=== PATIENT | male | born 1945 | race Caucasian/White ===

== ENCOUNTER 2019-11-04 11:44 | Outpatient (CLI) | payer MEDICARE, SELFPAY ==
--- NOTE | 2019-11-04 11:50 | CT_ITS ---
WS: [id number] CT ABDOMEN AND PELVIS WITH AND WITHOUT CONTRAST HISTORY: FLANK PAIN, HEMATURIA TECHNIQUE: Unenhanced 5 mm axial imaging first performed through the abdomen. Post contrast imaging t hrough the abdomen and pelvis. Oral contrast has been provided. Sagittal and coronal reformats are s ubmitted. All CT scans at [facility] use at least one of these dose optimization techniqu es: automated exposure control; mA and/or kV adjustment per patient size (includes targeted exams whe re dose is matched to clinical indication); or iterative reconstruction. CONTRAST: Visipaque 320; 95 mL IV. DLP: 3690.86 mGycm COMPARISON: None available. Lung bases are clear. Heart size is normal. Small hiatal hernia. Mild hepatomegaly with diffuse moderate hepatic steatosis. No bile duct dilatation. Gallbladder is no rmal. Spleen and pancreas are normal. Lobulated LEFT adrenal gland consistent with hyperplasia. Houns field units are low suggesting adenomatous disease. Normal RIGHT adrenal gland. Atherosclerosis aorta with no aneurysm. RIGHT kidney: 14 cm in length with no stone or obstruction. Mild perinephric stranding. There are sev eral cortical hypodensities extending exophytic from the upper and mid kidney. The largest measures 1 2 mm, image 36 of series 3 with no enhancement. No filling defect in the renal pelvis or along the co urse of the RIGHT ureter on the delayed imaging. LEFT kidney: 9.4 cm in length. No obstruction or renal calcifications. Mildly complex cyst from the u pper pole and lower pole. Largest measures 18 mm from the upper pole. Cortical thinning and volume lo ss in the mid to lower LEFT kidney is probably from a prior infarct or vascular insult. No filling de fects along the course of the LEFT ureter but it is incompletely distended with contrast. Calcified mass inseparable from the inferior lobe of the liver and the ascending colon. Benign in junior earance due to the peripheral dense calcification with no adjacent inflammation. May be from prior di verticular disease the appendix is normal. Lipoma associated with the LEFT iliopsoas muscle distally over the femoral head. Urinary bladder: Soft tissue mass which is lobulated in the posterior urinary bladder to the RIGHT of midline. Mass measures 2.4 x 3.0 x 3.4 cm. Very closely associated with the RIGHT ureteral junction. Mild enlargement of prostate gland also. L5 anterolisthesis by 11 mm due to bilateral pars defects. Severe disc space narrowing at L5-S1. CT/CT abdomen pelvis wo/w [id number] IMPRESSION: 1. Lobulated posterior RIGHT lateral bladder mass measuring 2.4 x 3.0 x 3.4 cm . Closely associated with the RIGHT UV junction but no obstruction at this time . Recommend urology consultation. Suspect transitional cell carcinoma. 2. Mild atrophy of the LEFT kidney, greatest involving the mid to lower kidney with cortical thinning. 3. Bilateral complex renal cysts. 4. No solid renal mass. 5. Mild hyperplasia versus adenoma LEFT adrenal gland. 6. Hepatic steatosis. 7. Mild diverticulosis.
[2019-11-04] MEDS: iohexol 300 mg/mL 50 mL Btl PO (13:34)
[2019-11-04] MEDS: iodixanol 320 mg/mL 100mL Btl IV (13:35)
== END 2019-11-04 11:45 | disposition home or self-care (01) ==
LOC: RADWPI 11:53
PROVIDERS: PCP Family Medicine; Visit Provider Family Medicine
DX: R31.9 Hematuria, unspecified (principal); N26.1 Atrophy of kidney (terminal); N28.1 Cyst of kidney, acquired; K76.0 Fatty (change of) liver, not elsewhere classified; K57.90 Diverticulosis of intestine, part unspecified, without perforation or abscess without bleeding
CPT/HCPCS: 74178; Q9967

== ENCOUNTER → 2019-11-22 10:37 | Outpatient (BNVA) | payer MEDICARE, SELFPAY | PROVIDERS: PCP Family Medicine; Visit Provider Urology | DX: C67.4 Malignant neoplasm of posterior wall of bladder (principal); R31.0 Gross hematuria; R33.8 Other retention of urine | CPT/HCPCS: 81001 ==

== ENCOUNTER 2019-11-25 16:17 | Observation (INO) | payer MEDICARE, SELFPAY ==
[2019-11-22 17:19] VITALS: BMI 32.9
[2019-11-25] VITALS (12 sets, daily range): BP systolic 121–176; BP diastolic 74–96; PULSE 68–101; RESP 12–28; TEMP 36.4–36.8; O2SAT 94–98
--- NOTE | 2019-11-25 13:46 | XRR_ITS ---
PROCEDURE INFORMATION: Exam: XR Chest, 2 Views Exam date and time: 11/25/2019 2:23 PM Age: 74 years old Clinical indication: Pre-operative exam; Cardiovascular screening and respiratory screening exam; Additional info: Recently diagnosed bladder cancer, history of tobacco use, pre op TECHNIQUE: Imaging protocol: XR of the chest Views: Frontal and lateral upright views. COMPARISON: No relevant prior studies available. FINDINGS: Lungs: The lungs are clear bilaterally. The pulmonary vasculature is normal. Pleural space: No pleural effusion. No pneumothorax. Heart/Mediastinum: The heart is normal in size and contour. Vasculature: Moderate aortic arch atherosclerotic calcification without ectasia. Mild tortuosity of the upper descending thoracic aorta. Bones/joints: No acute chest wall abnormality identified. XR/XR chest 2V* [id number] IMPRESSION: No acute cardiopulmonary abnormality identified.
--- NOTE | 2019-11-25 14:05 | ANES.PREANE2 ---
Pre-Anesthetic Assessment Pre-Anesthetic Assessment: Height/Weight: Height 1.83 m Weight 110.223 kg Temp Pulse Resp BP Pulse Ox 97.5 F L 88 18 129/80 98 11/25/19 13:40 11/25/19 13:40 11/25/19 13:40 11/25/19 13:40 11/25/19 13:40 Preop Diagnosis: Newly diagnosed bladder cancer Proposed Procedure: Operation Date: 11/25/19 14:50 Proposed Procedures p Cystoscopy 36454 C67.4(Not Applicable) - Kodak Romero MD s Transurethral Resection Bladder Tumor(Not Applicable) - Kodak Romero MD Last intake: Intake Last Liquid Date 11/25/19 Last Liquid Time 09:20 Last Solid Date 11/24/19 Last Solid Time 23:30 Social: Social History: Tobacco Packs per day: 1 Pack years: 60 Airway: Submandibular: WNL Cervical ROM: WNL MP: 1 Dentition: False CV/HEM: CV/HEM: HTN Comments: stress test '95 negative 2 Blocks/2FOS without angina/ROSARIO : Comments: bladder tumor GI: GI: GERD Comments: omeprazole controlled Metabolic: Metabolic: DM (rx'd x 12y, normally 300-380) Anesthetic Plan: ASA status: 3 Anesthesia: General PFSH Anesthesia PFSH: Medical History (Updated 11/22/19 @ 16:24 by Nadiya Christensen RN) 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
[2019-11-25] MEDS: insulin regular-human 100 units/1 mL 10 UNIT IVP (14:14)
[2019-11-25 14:47] LABS: Basophils # 0.1 10^3/uL (0.0-0.1); Basophils % 0.8 %; Eosinophils # 0.2 10^3/uL (0.0-0.8); Eosinophils % 2.7 %; Hemoglobin 14.6 g/dL (11.7-16.6); Lymphocytes # 2.4 10^3/uL (0.8-4.8); Mean Corpuscular HGB Conc 32.4 g/dL (30.0-36.0); Mean Corpuscular Hemoglobin 28.9 pg (28.0-34.0); Mean Corpuscular Volume 88.9 fL (80-94); Mean Platelet Volume 10.4 fL (7.4-10.4); Monocytes # 0.6 10^3/uL (0.2-0.9); Monocytes % 8.4 %; Neutrophils # 3.9 10^3/uL (1.8-7.7); Neutrophils % 54.5 %; Nucleated Red Blood Cells % 0 %; Platelet Count 274 10^3/cmm (130-400); Red Blood Count 5.06 10^6/uL (4.1-5.3); Red Cell Distribution Width 12.8 % (12.1-15.1); White Blood Count 7.1 10^3/uL (4.0-10.0)
[2019-11-25 15:06] LABS: Alanine Aminotransferase 52 U/L (0-41); Albumin Level 4.3 g/dL (3.5-5.2); Alkaline Phosphatase 73 IU/L (40-130); Anion Gap 19.7 (5-19); Aspartate Amino Transferase 37 U/L (0-40); Blood Urea Nitrogen 15 mg/dL (8-23); Calcium 10.7 mg/dL (8.5-10.5); Carbon Dioxide 23 mmol/L (22-29); Chloride 94 mmol/L (98-107); Globulin 3.6 g/dL (1.3-4.6); Glucose 341 mg/dL (65-115); Potassium 4.7 mmol/L (3.5-5.1); Sodium 132 mmol/L (136-145); Total Bilirubin 0.4 mg/dL (0.15-1.2); Total Protein 7.9 g/dL (6.6-8.7)
--- NOTE | 2019-11-25 15:08 | P.OP_ITS ---
Operative Report Date of procedure: November 25, 2019 Pre-op Diagnosis: Newly diagnosed bladder cancer Post-op diagnosis: same Procedure Done: Cystoscopy, transurethral resection of bladder tumor large Specimens removed/disposition: Bladder tumor fragments Pathology: Right posterior floor bladder tumor Surgeon: Nick Anesthesia: General Estimated blood loss: Less than 100 cc Urine output: Not measured Complications: None Findings: Large papillary tumor extending from the right posterior floor cephalad to the right ureteral orifice with surrounding neoplastic changes at the base no clear evidence of muscle invasion. Condition: stable Disposition: PACU Brief History: Mr. Cornejo is a very pleasant 74-year-old white male who I evaluated for the first time last week for 6 weeks of intermittent gross hematuria and a CT scan that demonstrated what a bladder mass confirmed on cystoscopy to be consistent with TCCA cephalad and lateral to the right ureteral orifice. At the base of the tumor there was additional abnormality identified as flat and papillary changes. Admitted now for TURBT. Procedure: After routine preoperative evaluation examination and obtaining of informed consent he was taken to the operating suite on 11/25/2019 where general anesthesia was administered without difficulty after appropriate timeout was p erformed, SCDs confirmed to be functioning, preoperative antibiotics administered, beta-carlos protocol confirmed. Prepped and draped in the usual sterile fashion in dorsolithotomy position pain careful attention to avoiding pressure points. 21 [place] cystoscope with 30 degree lens was introduced to the urethral meatus and advanced into the bladder under videoscopy. Bladder was systematically e xamined with both 30 and 70 degree lens. Other than the lesion described above there were no additional tumors found. The urethra was then calibrated with [place] sounds and easily accommodated 28 [place]. 2% lidocaine jelly was instilled into the urethra. The 25 [place] continuous flow resectoscope sheath was advanced into well-lubricated urethra with the visual obturator. The gyrus bipolar system was utilized with the super loop for resection and the button probe for obtaining hemostasis after the tumor was completely resected. The tumor was very vascular but bleeding was controlled relatively easily. Landmarks were again ascertained with the orifice identified away from the tumor. The tumor was resected from the edge farthest from the bladder wall down to the base. All abnormal tissue was resected. Deep sampling was performed into the muscle. It appears that the tumor is probably invasive at least into the lamina propria and possibly into the muscle. The button probe was utilized for obtaining meticulous hemostasis. Chips were all evacuated from the bladder with an BasharJobs evacuator. On final inspection there was no active bleeding, no remaining chips, and the bladder was drained with a 20 [place] three-way Hood catheter with light CBI running with normal saline. Tolerated the procedure well without complications and was awakened in the operating room and returned to the recovery room in stable condition PLANS: 1. Mitomycin instillation in the morning 2. Voiding trial after mitomycin
--- NOTE | 2019-11-25 15:12 | W.PM.OPSUD ---
Surgery/Procedure H&P Update DATE OF PROCEDURE: November 25, 2019 DATE H&P PERFORMED: 11/22/19 H&P UPDATE INFORMATION: I have reviewed H&P completed within last 30 days, I have examined patient prior to procedure, No changes to prior documentation and H&P is in [facility] [place] on date indicated PREOP DIAGNOSIS: Newly diagnosed bladder cancer PLANNED PROCEDURE: Operation Date: 11/25/19 14:50 Proposed Procedures p Cystoscopy 22533 C67.4(Not Applicable) - Kodak Romero MD s Transurethral Resection Bladder Tumor(Not Applicable) - Kodak Romero MD
[2019-11-25 15:13] LABS: Glucose Point of Care 312 mg/dL (70-110)
[2019-11-25] MEDS: levofloxacin-dextrose 5 % 500 MG/100 ML PREMIX 100 MG IV (15:15)
[2019-11-25] MEDS: sodium chloride 0.9% 1,000 ML 30 ML IV (15:17)
[2019-11-25] MEDS: lidocaine 2% Urojet 20 mL TOPICAL (15:49)
[2019-11-25 17:24] LABS: Glucose Point of Care 235 mg/dL (70-110)
[2019-11-25] MEDS: glimepiride 2 mg Tablet 4 MG PO (18:27)
[2019-11-25] MEDS: sodium chloride 0.9% 1,000 ML 50 ML IV (18:27)
[2019-11-25] MEDS: metformin 500 mg Tablet 1000 MG PO (18:27)
--- NOTE | 2019-11-25 18:51 | PC.NURSE ---
Received Patient from surgery with CBI going and had in 400. Patient received 2800mL and out 1700 which put his output at 300mL. Family is at bedside. Urine is clear and patient is tolerating well.
[2019-11-25 21:09] LABS: Glucose Point of Care 263 mg/dL (70-110)
--- NOTE | 2019-11-26 05:03 | PC.NURSE ---
Pt tolerated CBI well - currently at a fast paced drip to maintain light pink tinged output, when slowed down too much output does become wei red. No visible clots. Draining well - No complaints of pain/discomfort/pressure to suprapubic area and no need at this time to manually irrigate. Approx 900ml urine output at this time. Further intake/output totals to follow at end of shift.
--- NOTE | 2019-11-26 07:20 | PM.MISC ---
Miscellaneous Note Note: Mitomycin instilled into the bladder. Try to hold for 1 hour or less. Based on the depth of resection I will plan on leaving the catheter in after mitomycin has been instilled and discharged with Hood in place until voiding trial in my office.
--- NOTE | 2019-11-26 07:24 | PC.NURSE ---
total approx CBI instillation to total [id number] with approx 1300ml urine output.
[2019-11-26 08:00] VITALS: BP 130/82; PULSE 72; RESP 16; TEMP 36.8; O2SAT 94
[2019-11-26] MEDS: glimepiride 2 mg Tablet 4 MG PO (09:15)
[2019-11-26] MEDS: metformin 500 mg Tablet 1000 MG PO (09:15)
[2019-11-26] MEDS: pantoprazole DR 40 mg Tablet PO (09:15)
[2019-11-26] MEDS: tamsulosin 0.4 mg Capsule PO (09:16)
[2019-11-26] MEDS: atorvastatin 40 mg Tablet 20 MG PO (09:16)
[2019-11-26] MEDS: lisinopril 5 mg Tablet PO (09:16)
--- NOTE | 2019-11-26 09:37 | PC.CHAP ---
Pastoral Care Encounter/Spiritual Assessment Type of Contact [] Declined port drier visit [] Patient/Family/Request visit [] Outpatient visit [] Follow-up visit [] Physician referral [] Code/Alert [x] Routine visit [] Staff referral [] Actively dying [] Patient sleeping [] Family support [] [] Out of room [] Palliative care [] [] Receiving care in room [] Pre-surgical visit [] Trauma [] Long length of stay [] ICU visit [] Other: Relational/Emotional Strength [x] Patient feels connected with others/family/visitors/staff [] Distress [] Loneliness/isolation [] Abandonment Spirituality of Patient [x] Person of Cierra [] Attends Quaker of their Cierra [] Believes in Prayer [] Reads Bible or Oriental Orthodox materials [] There are Spiritual issues to be addressed Indian Trader Interventions [x] Prayer [x] Active listening []x Non-anxious presence [] Spiritual/emotional support [] Crisis/trauma care [] Spiritual counseling [] Bereavement support [] Provided bereavement packet [] Provided Bible/devotional materials [] Provided toy/stuffed animal, coloring book to patient or family member [] Provided Communion [] Anointing/[place] [] Salvation [] Completed spiritual assessment [] Other: Impact on Illness or Injury [] Angry [] Fearful [] Anxious [] Often cries [] Exhaustion [] Unable to work [] Unable to attend christianity [] Unable to walk/stand [] Unable to read [] Unable to drive [] Unable to eat/drink [] Unable to sleep [] Unable to be with family [] Patient intubated [] Other: Summary patient ready ro go home 15 min Time spent with patient
[2019-11-26 09:49] VITALS: PULSE 75; O2SAT 93
[2019-11-26 10:00] VITALS: BMI 32.9
[2019-11-26 11:11] LABS: Glucose Point of Care 363 mg/dL (70-110)
[2019-11-26] MEDS: acetaminophen 325 mg Tablet 650 MG PO (11:32)
--- NOTE | 2019-11-26 11:49 | ANE.PACU2 ---
 Inpatient post-anesthesia follow up: Airway intact: Yes Vital signs: Temperature 98.3 F Pulse Rate 75 Respiratory Rate 16 Blood Pressure 130/82 Pulse Oximetry 93 Oxygen Delivery Me thod [ Room Air Current Rate & Del sally] Oxygen Delivery Me thod Room Air Oxygen Flow Rate 8 Fraction of Inspir ed Oxygen Hydration adequate: Yes Nausea and vomiting: No Mental status: Baseline
--- NOTE | 2019-11-26 12:22 | PM.DCS ---
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 Reason for Visit Reason for Visit: Reason For Visit: Cystoscopy Transurethral recsection of bladder [place] Hospital Course Hospital Course: Admitted through outpatient surgery for the above procedure which went well. Postoperatively he was maintained on light CBI on the night of his surgery. On postoperative day #1 he underwent mitomycin instillation intravesically and held for an hour before drainage. No untoward events. Catheter was maintained at time of discharge due to the depth of resection. On the afternoon of postoperative day #1 he was deemed a good candidate for further convalescence at home. Physical Exam Const: COMMON NORMALS: no apparent distress, alert and well nourished GENERAL APPEARANCE: well kempt and well developed ORIENTATION/CONSCIOUSNESS: not confused Neck/C-Spine: GENERAL: Yes normal visual inspection Resp: COMMON NORMALS: normal respiratory effort EFFORT & INSPECTION: No labored and No actively coughing Extremity: COMMON NORMALS: no clubbing, cyanosis or edema Neuro: SENSORIUM/ORIENTATION: Yes alert Psych: COMMON NORMALS: mental status grossly normal APPEARANCE: Yes grossly normal and Yes well kempt ATTITUDE: Yes calm and Yes engaged Urinary Catheter Management^: 3-way Urethral CBI: Cath Placed During This Visit: yes Urethral Indwelling: Yes Reason for Continuing Indwelling Catheter: Perioperative Use in Selected Surgeries Urinary Catheter Date of Insertion: 11/25/19 Urinary Catheter Time of Insertion: 16:08 Discharge Data Data Completed and Pending: Completed Studies During Hospitalization Category Date Time Status XR chest 2V* 7104 6 Routine Exams 11/25/19 13:46 Completed Pending at discharge Category Date Time Status Pathology: Surgic al [PTH] Routine Pth 11/25/19 16:14 Received Labs from last 24 hours 11/26/19 11/25/19 11/25/19 10:51 21:06 17:21 WBC RBC Hgb Hct MCV MCH MCHC RDW Plt Count MPV Neut % (Auto) Lymph % (Auto) [place] % (Auto) Eos % (Auto) Baso % (Auto) Neut # (Auto) Lymph # (Auto) [place] # (Auto) Eos # (Auto) Baso # (Auto) Nucleated RBC % (a uto) Nucleated RBCs # Sodium Potassium Chloride Carbon Dioxide Anion Gap BUN Creatinine Glucose POC Glucose 363 263 235 Calcium Total Bilirubin AST ALT Alkaline Phosphata se Total Protein Albumin Globulin 11/25/19 11/25/19 11/25/19 13:52 13:49 13:49 WBC 7.1 RBC 5.06 Hgb 14.6 Hct 45.0 MCV 88.9 MCH 28.9 MCHC 32.4 RDW 12.8 Plt Count 274 MPV 10.4 Neut % (Auto) 54.5 Lymph % (Auto) 33.0 [place] % (Auto) 8.4 Eos % (Auto) 2.7 Baso % (Auto) 0.8 Neut # (Auto) 3.9 Lymph # (Auto) 2.4 [place] # (Auto) 0.6 Eos # (Auto) 0.2 Baso # (Auto) 0.1 Nucleated RBC % (a uto) 0 Nucleated RBCs # 0.0 Sodium 132 L Potassium 4.7 Chloride 94 L Carbon Dioxide 23 Anion Gap 19.7 H BUN 15 Creatinine 0.9 Glucose 341 H POC Glucose 312 Calcium 10.7 H Total Bilirubin 0.4 AST 37 ALT 52 H Alkaline Phosphata se 73 Total Protein 7.9 Albumin 4.3 Globulin 3.6 Vitals: Last Vital Signs Temp 98.3 F 11/26/19 08:00 Pulse 75 11/26/19 09:49 Resp 16 11/26/19 08:00 BP 130/82 11/26/19 08:00 Pulse Ox 93 11/26/19 09:49 Discharge Plan Discharge Patient Disposition: Home, Self-Care Condition: Stable Prescriptions: Continued Complete Multivitamin Tablet 1 tab PO DAILY RF: 0 Tradjenta 5 mg tablet 5 mg PO DAILY RF: 0 tadalafil 20 mg tablet 20 mg PO DAILY PRN (Reason: Erectile Dysfunction) RF: 0 tamsulosin 0.4 mg capsule 0.4 mg PO DAILY RF: 0 simvastatin 10 mg tablet 10 mg PO DAILY RF: 0 lisinopril 5 mg tablet 5 mg PO DAILY RF: 0 omeprazole 20 mg capsule,delayed release(DR/EC) 20 mg PO DAILY RF: 0 glimepiride 4 mg tablet 4 mg PO BID RF: 0 metformin 1,000 mg tablet 1,000 mg PO BID RF: 0 Discontinued lidocaine HCl 2 % jelly 1 applic INTRA-URET ONCE Qty: 15 RF: 0 Discharge Orders: Discharge Order (Routine); Ordered 11/26/19 Ordered By: Kodak Romero Referrals: Kodak Romero MD [Physician] - 1-3 days (Later this week for voiding trial and hopefully pathology report review) Discharge Diet: Usual diet Discharge Activity: Limit activity as instructed Discharge Attestations Time Spent in Discharge Care*: less than 30 min Quality Metrics Clinical Quality Measures During this hospital stay, did patient experience: None Coding Level of Care Code Acute Global Climate Change Researcher for g Fwd Diagnoses 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
[2019-11-26 12:38] VITALS: PULSE 75; O2SAT 93
--- NOTE | 2019-11-26 13:18 | PC.NURSE ---
DISCHARGE SUMMARY Patient was given discharge instructions. family was a t bedside and received education on Hood catheter care. nigh and leg Hood bags were sent home with patient. IV discontinued and vital signs stable. patient was alert and orient. follow up appointments made and patient was taken downstairs by volunteer via wheelchair.
== END 2019-11-26 13:20 | disposition home or self-care (01) ==
LOC: MEDSURG 16:17
PROVIDERS: Admitting Provider Urology; PCP Family Medicine; Visit Provider Urology
PROC: 0TJB8ZZ Inspection of Bladder, Via Natural or Artificial Opening Endoscopic (ICD-10-PCS; CPT 52000; principal; 2019-11-25 14:20)
PROC: 0TBB8ZZ Excision of Bladder, Via Natural or Artificial Opening Endoscopic (ICD-10-PCS; CPT 52240; 2019-11-25 14:20)
DX: C67.4 Malignant neoplasm of posterior wall of bladder (principal); F17.210 Nicotine dependence, cigarettes, uncomplicated; I10 Essential (primary) hypertension; K21.9 Gastro-esophageal reflux disease without esophagitis; E11.9 Type 2 diabetes mellitus without complications; Z79.84 Long term (current) use of oral hypoglycemic drugs
CPT/HCPCS: 52240; 12345; 36416; 71046; 80053; 82962; 85025; 88305; 96365; 96374; G0378; J1815; J1956; J2001; J2370; J2405; J2704; J2710; J3010; J3490; J7030; J9280

== ENCOUNTER → 2019-12-16 11:58 | Outpatient (BNVA) | payer MEDICARE, SELFPAY | PROVIDERS: PCP Family Medicine; Visit Provider Urology | DX: C67.4 Malignant neoplasm of posterior wall of bladder (principal); R31.0 Gross hematuria; N30.80 Other cystitis without hematuria | CPT/HCPCS: 80053; 81001; 87077; 87086; 87186 ==

== ENCOUNTER 2019-12-19 15:43 | Observation (INO) | payer MEDICARE, SELFPAY ==
[2019-12-18 13:10] VITALS: BMI 32.9
[2019-12-19] VITALS (17 sets, daily range): BP systolic 118–180; BP diastolic 74–97; PULSE 77–98; RESP 13–20; TEMP 36.1–37.1; O2SAT 90–97
[2019-12-19] MEDS: sodium chloride 0.9% 1,000 ML 30 ML IV ×2 (12:47→16:17)
[2019-12-19 12:57] LABS: Glucose Point of Care 306 mg/dL (70-110)
--- NOTE | 2019-12-19 13:02 | ANES.PREANE2 ---
Pre-Anesthetic Assessment Pre-Anesthetic Assessment: Height/Weight: Height 1.83 m Weight 110.223 kg Temp Pulse Resp BP Pulse Ox 97.2 F L 97 18 118/87 94 12/19/19 12:35 12/19/19 12:35 12/19/19 12:35 12/19/19 12:35 12/19/19 12:35 Preop Diagnosis: High-grade bladder cancer needs restaging Proposed Procedure: Operation Date: 12/19/19 14:00 Proposed Procedures s Transurethral Resection Bladder Tumor 73365 C67.9(Not Applicable) - Kodak Romero MD p Cystoscopy 01222 C67.9(Not Applicable) - Kodak Romero MD Last intake: Intake Last Liquid Date 12/19/19 Last Liquid Time 08:40 Last Solid Date 12/18/19 Last Solid Time 20:00 Social: Social History: Alcohol and Tobacco Exam: Pre-Anes Outpt Exam: alert, oriented x 3, clear to auscultation bilaterally and regular rate & rhythm Airway: Submandibular: WNL Cervical ROM: WNL MP: 1 Dentition: Full History/ROS: No significant history except as noted Pulmonary: Pulmonary: None reported CV/HEM: CV/HEM: HTN : Comments: bladder ca Hepatic: Hepatic: None reported GI: GI: None reported Metabolic: Metabolic: DM Musc/skel: Musc/skel: None reported Neuropsych: Neuropsych: None reported Anesthetic Plan: ASA status: 3 Anesthesia: Anesthesia Evaluation and General Risk of > 500 ml blood loss (7ml/kg in children): No Meds/Allergies Current Medications: Current Medications Generic Name Dose Route Start Last Admin Trade Name Freq PRN Reason Stop Dose Admin Sodium Chloride 1,000 mls @ 30 ml s/hr 12/19/19 08:00 12/19/19 12:47 Sodium Chloride 0.9% IV 12/20/19 07:59 30 mls/hr .Q24H JAI Administration PFSH Anesthesia PFSH: Medical History 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 Diabetes mellitus Family History Father , at age 54 Cancer Mother , at age 92 No problems noted. Social History Smoking and tobacco status: current every day smoker Alcohol intake: current Adopted: No Caregiver/support person: No Current occupational status: retired History of recent travel: No Current gender identity: Male Data Anesthesia Other Labs: Laboratory Results - last 48 hr 12/19/19 12:53 POC Glucose 306 Cardiac Studies: No Data to Display
[2019-12-19] MEDS: insulin regular-human 100 units/1 mL 10 UNIT IVP (13:10)
--- NOTE | 2019-12-19 13:34 | W.PM.OPSUD ---
Surgery/Procedure H&P Update DATE OF PROCEDURE: December 19, 2019 DATE H&P PERFORMED: 11/22/19 H&P UPDATE INFORMATION: I have reviewed H&P completed within last 30 days, I have examined patient prior to procedure and No changes to prior documentation PREOP DIAGNOSIS: High-grade bladder cancer needs restaging PLANNED PROCEDURE: Operation Date: 12/19/19 14:00 Proposed Procedures s Transurethral Resection Bladder Tumor 68455 C67.9(Not Applicable) - Kodak Romero MD p Cystoscopy 68426 C67.9(Not Applicable) - Kodak Romero MD
[2019-12-19 13:55] LABS: Glucose Point of Care 278 mg/dL (70-110)
--- NOTE | 2019-12-19 14:17 | P.OP_ITS ---
Operative Report Date of procedure: December 19, 2019 Pre-op Diagnosis: High-grade bladder cancer needs restaging Post-op diagnosis: same Procedure Done: Cystoscopy transurethral resection of bladder tumor base with deep sampling. Pathology: Deep bladder wall sampling at base of previous resection Surgeon: Nick Anesthesia: General Estimated blood loss: Minimal Urine output: Not measured Complications: None Findings: No visible tumor identified. Deep resection of the base of the previously resected bladder tumor cephalad and lateral to the right ureteral orifice. Resection demonstrated muscle fibers visualized in the resected area Condition: stable Brief History: Mr. Cornejo is a very pleasant 74-year-old white male recently diagnosed with a large bladder tumor on the right posterior lateral bladder wall cephalad to the right ureteral orifice. On 11/25/2019 he underwent a cystoscopy and transurethral resection of this tumor. All visible tumor was resected. It was felt that the time that there was a deep adequate sampling but the final pathology report failed to show obvious muscle. Pathology did reveal high-grade lamina propria TCCA and for that reason he is being admitted now for restaging deeper biopsies to confirm presence or absence of muscle involvement. Procedure: After routine preoperative evaluation examination and obtaining of informed consent he was taken to the operating suite on 12/19/2019 where general anesthesia was administered without difficulty after appropriate timeout was performed, SCDs confirmed to be functioning, preoperative antibiotics administered, beta-carlos protocol confirmed. Prepped and draped in usual sterile fashion in dorsolithotomy position pain careful attention to avoiding pressure points. 21 [place] cystoscope with 30 degree lens was introduced to the urethral meatus and advanced into the bladder under videoscopy. Bladder was systematically examined with both 30 and 70 degree lenses. The site of the previous section was easily identified. It had a lot of whitish fluffy eschar. There was no obvious residual tumor identified. The urethra was then calibrated with [place] sounds and easily accommodated 30 [place]. 2% lidocaine jelly was instilled into the urethra and a 25 [place] continuous flow resectoscope with visual obturator in place was advanced into the bladder without difficulty. The gyrus bipolar system was utilized for the deep resection. The super loop was utilized first to resect the base of the previously identified tumor. Muscle fibers were identified in the base of the wound. No clear evidence of residual tumor was identified. The entire base of the previous resection was resected further. The button probe was then utilized to obtain meticulous hemostasis. All the work was done well away from the right ureteral orifice. At the completion of the procedure the samples were sent for pathologic evaluation, all chips were confirmed to have been removed with an Ellik evacuator and hemostasis was meticulous. The bladder was drained with a 20 [place] two-way Hood catheter. He tolerated the procedure well without complications and was awakened in the operating room and returned to recovery in stable condition. PLANS: 1. He will be observed overnight with anticipated discharge in the morning.
[2019-12-19] MEDS: levofloxacin-dextrose 5 % 500 MG/100 ML PREMIX 100 MG IV (14:40)
[2019-12-19] MEDS: HYDROcodone-acetaminophen 5-325 mg Tablet 1 TAB PO ×2 (16:17→22:52)
[2019-12-19 17:09] LABS: Glucose Point of Care 289 mg/dL (70-110)
[2019-12-19] MEDS: metformin 500 mg Tablet 1000 MG PO (17:55)
[2019-12-19] MEDS: ciprofloxacin 500 mg Tablet PO (17:55)
[2019-12-19] MEDS: glimepiride 2 mg Tablet 4 MG PO (17:56)
[2019-12-19] MEDS: docusate sodium 100 mg Capsule PO (17:56)
[2019-12-19 21:59] LABS: Glucose Point of Care 364 mg/dL (70-110)
[2019-12-20] VITALS: BP 125/78; PULSE 84; RESP 18; TEMP 37.3; O2SAT 91
[2019-12-20 04:34] VITALS: BP 143/83; PULSE 100; RESP 14; TEMP 36.6; O2SAT 91
--- NOTE | 2019-12-20 05:48 | PM.DCS ---
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 (2) Diabetes mellitus: Status: Acute (3) Hx of primary hypertension: Status: Acute Reason for Visit Reason for Visit: Reason For Visit: Cystoscopy Transurethral resection of bladder tumo Hospital Course Hospital Course: Admitted through OPS for TURBT of base of previous resection site to restage. Surgery went well. Post op urine remained clear. Voiding trial early on POD #1. Urine remained clear and he emptied well and bladder scan post void residual Discharged on POD #1 with f/u scheduled for 2 month cysto if no muscle involvement on final path. Plan for BCG initiation at that time if well healed. Physical Exam Const: COMMON NORMALS: no apparent distress, alert and well nourished GENERAL APPEARANCE: well kempt and well developed ORIENTATION/CONSCIOUSNESS: not confused Neck/C-Spine: COMMON NORMALS: full ROM Resp: COMMON NORMALS: normal respiratory effort EFFORT & INSPECTION: No labored and No actively coughing Extremity: COMMON NORMALS: no clubbing, cyanosis or edema Neuro: COMMON NORMALS: no focal motor deficits SENSORIUM/ORIENTATION: Yes alert Psych: COMMON NORMALS: mental status grossly normal APPEARANCE: Yes grossly normal and Yes well kempt ATTITUDE: Yes calm and Yes engaged Urinary Catheter Management^: Hood: Cath Placed During This Visit: yes Urinary Catheter Date of Insertion: 12/19/19 Urinary Catheter Time of Insertion: 15:15 Discharge Data Data Completed and Pending: Pending at discharge Category Date Time Status Pathology: Surgic al [PTH] Routine Pth 12/19/19 15:09 Ordered Labs from last 24 hours 12/19/19 12/19/19 12/19/19 21:53 17:03 13:43 POC Glucose 364 289 278 12/19/19 12:53 POC Glucose 306 Vitals: Last Vital Signs Temp 98 F 12/20/19 04:34 Pulse 100 12/20/19 04:34 Resp 14 12/20/19 04:34 BP 143/83 12/20/19 04:34 Pulse Ox 91 12/20/19 04:34 Discharge Plan Discharge Patient Disposition: Home, Self-Care Condition: Stable Prescriptions: Continued Complete Multivitamin Tablet 1 tab PO DAILY RF: 0 Tradjenta 5 mg tablet 5 mg PO DAILY RF: 0 tadalafil 20 mg tablet 20 mg PO DAILY PRN (Reason: Erectile Dysfunction) RF: 0 tamsulosin 0.4 mg capsule 0.4 mg PO DAILY RF: 0 simvastatin 10 mg tablet 10 mg PO DAILY RF: 0 lisinopril 5 mg tablet 5 mg PO DAILY RF: 0 omeprazole 20 mg capsule,delayed release(DR/EC) 20 mg PO DAILY RF: 0 glimepiride 4 mg tablet 4 mg PO BID RF: 0 metformin 1,000 mg tablet 1,000 mg PO BID RF: 0 ciprofloxacin HCl 500 mg tablet 500 mg PO BID Qty: 14 RF: 1 Discharge Orders: Discharge Order (Routine); Ordered 12/20/19 Ordered By: Kodak Romero Referrals: Kodak Romero MD [Physician] - 02/28/20 9:00 am (Cystoscopy and BCG initiation) Discharge Diet: Usual diet Discharge Activity: Limit activity as instructed Patient Instructions: Cystoscopy (DC) Activity Restrictions/Additional Instructions: 1. No lifting greater than 10 lbs x 2 weeks 2. Call my office if you've not heard from us by Monday the . 3. Please call if you have any concerns or questions. 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
[2019-12-20] MEDS: HYDROcodone-acetaminophen 5-325 mg Tablet 1 TAB PO (06:10)
[2019-12-20 06:42] LABS: Glucose Point of Care 231 mg/dL (70-110)
[2019-12-20 07:45] VITALS: BP 130/62; PULSE 84; RESP 18; TEMP 36.9; O2SAT 93
--- NOTE | 2019-12-20 08:33 | PC.NURSE ---
1st void pt voided 175ml clear yellow urine. bladder scanned and showed 0ml.
[2019-12-20] MEDS: metformin 500 mg Tablet 1000 MG PO (08:53)
[2019-12-20] MEDS: glimepiride 2 mg Tablet 4 MG PO (08:54)
[2019-12-20] MEDS: tamsulosin 0.4 mg Capsule PO (08:57)
[2019-12-20] MEDS: lisinopril 5 mg Tablet PO (08:57)
[2019-12-20] MEDS: pantoprazole DR 40 mg Tablet PO (08:57)
[2019-12-20] MEDS: docusate sodium 100 mg Capsule PO (08:58)
[2019-12-20] MEDS: ciprofloxacin 500 mg Tablet PO (08:58)
--- NOTE | 2019-12-20 10:39 | P.DS_ITS ---
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 (2) Diabetes mellitus: Status: Acute (3) Hx of primary hypertension: Status: Acute Reason for Visit Reason for Visit: Reason For Visit: Cystoscopy Transurethral resection of bladder tumo Hospital Course Hospital Course: Admitted through OPS for TURBT of base of previous resection site to restage. Surgery went well. Post op urine remained clear. Voiding trial early on POD #1. Urine remained clear and he emptied well and bladder scan post void residual Discharged on POD #1 with f/u scheduled for 2 month cysto if no muscle involvement on final path. Plan for BCG initiation at that time if well healed. Physical Exam Const: COMMON NORMALS: no apparent distress and alert Resp: COMMON NORMALS: normal respiratory effort EFFORT & INSPECTION: No tachypneic and No respiratory distress Neuro: SENSORIUM/ORIENTATION: Yes alert Psych: COMMON NORMALS: mental status grossly normal, thought process normal and cooperative ATTITUDE: Yes calm and Yes engaged THOUGHT PROCESS: normal thought process Urinary Catheter Management^: Hood: Cath Placed During This Visit: yes Urinary Catheter Date of Insertion: 12/19/19 Urinary Catheter Time of Insertion: 15:15 Discharge Data Data Completed and Pending: Pending at discharge Category Date Time Status Pathology: Surgic al [PTH] Routine Pth 12/19/19 15:09 Ordered Labs from last 24 hours 12/20/19 12/19/19 12/19/19 06:37 21:53 17:03 POC Glucose 231 364 289 12/19/19 12/19/19 13:43 12:53 POC Glucose 278 306 Vitals: Last Vital Signs Temp 98.5 F 12/20/19 07:45 Pulse 84 12/20/19 07:45 Resp 18 12/20/19 07:45 BP 130/62 12/20/19 07:45 Pulse Ox 93 12/20/19 07:45 Discharge Plan Discharge Patient Disposition: Home, Self-Care Condition: Stable Prescriptions: Continued Complete Multivitamin Tablet 1 tab PO DAILY RF: 0 Tradjenta 5 mg tablet 5 mg PO DAILY RF: 0 tadalafil 20 mg tablet 20 mg PO DAILY PRN (Reason: Erectile Dysfunction) RF: 0 tamsulosin 0.4 mg capsule 0.4 mg PO DAILY RF: 0 simvastatin 10 mg tablet 10 mg PO DAILY RF: 0 lisinopril 5 mg tablet 5 mg PO DAILY RF: 0 omeprazole 20 mg capsule,delayed release(DR/EC) 20 mg PO DAILY RF: 0 glimepiride 4 mg tablet 4 mg PO BID RF: 0 metformin 1,000 mg tablet 1,000 mg PO BID RF: 0 ciprofloxacin HCl 500 mg tablet 500 mg PO BID Qty: 14 RF: 1 Discharge Orders: Discharge Order (Routine); Ordered 12/20/19 Ordered By: Kodak Romero Referrals: Kodak Romero MD [Physician] - 2 months (Cystoscopy and BCG initiation) Discharge Diet: Usual diet Discharge Activity: Limit activity as instructed Activity Restrictions/Additional Instructions: 1. No lifting greater than 10 lbs x 2 weeks 2. Call my office if you've not heard from us by Monday the . 3. Please call if you have any concerns or questions. 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
--- NOTE | 2019-12-20 11:06 | PC.NURSE ---
IV REMOVED FROM LEFT WRIST. Catheter intact. 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
--- NOTE | 2019-12-20 11:07 | PC.NURSE ---
2nd Void Voided 300ml clear yellow urine. bladder scan showed 0ml. 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
[2019-12-20 11:09] VITALS: BP 130/62; PULSE 84; RESP 18; TEMP 36.9; O2SAT 93
== END 2019-12-20 11:31 | disposition home or self-care (01) ==
LOC: MEDSURG 15:44
PROVIDERS: Admitting Provider Urology; PCP Family Medicine; Visit Provider Urology
PROC: 0TBB8ZZ Excision of Bladder, Via Natural or Artificial Opening Endoscopic (ICD-10-PCS; CPT 52204; principal; 2019-12-19 14:00)
PROC: 0TJB8ZZ Inspection of Bladder, Via Natural or Artificial Opening Endoscopic (ICD-10-PCS; CPT 52000; 2019-12-19 14:00)
DX: C67.4 Malignant neoplasm of posterior wall of bladder (principal); E11.9 Type 2 diabetes mellitus without complications; Z86.79 Personal history of other diseases of the circulatory system; Z79.84 Long term (current) use of oral hypoglycemic drugs; F17.210 Nicotine dependence, cigarettes, uncomplicated
CPT/HCPCS: 52204; 12345; 36416; 82962; 88305; 96372; 96374; 96375; G0378; J1815; J1956; J2001; J2405; J2704; J2710; J3010; J3490; J7030

== ENCOUNTER → 2020-02-28 09:57 | Outpatient (BNVA) | payer MEDICARE, SELFPAY | PROVIDERS: PCP Family Medicine; Visit Provider Urology | DX: C67.4 Malignant neoplasm of posterior wall of bladder (principal); R33.8 Other retention of urine; N52.1 Erectile dysfunction due to diseases classified elsewhere; E11.9 Type 2 diabetes mellitus without complications; Z86.79 Personal history of other diseases of the circulatory system; Z86.39 Personal history of other endocrine, nutritional and metabolic disease; R68.82 Decreased libido | CPT/HCPCS: 81001 ==

== ENCOUNTER → 2020-03-20 11:01 | Outpatient (BNVA) | payer MEDICARE, SELFPAY | PROVIDERS: PCP Family Medicine; Visit Provider Urology | DX: C67.4 Malignant neoplasm of posterior wall of bladder (principal); R68.82 Decreased libido | CPT/HCPCS: 36415; 81001 ==

== ENCOUNTER → 2020-03-27 13:51 | Outpatient (BNVA) | payer MEDICARE, SELFPAY | PROVIDERS: PCP Family Medicine; Visit Provider Urology | DX: C67.4 Malignant neoplasm of posterior wall of bladder (principal) | CPT/HCPCS: 81001 ==

== ENCOUNTER → 2020-04-10 12:17 | Outpatient (BNVA) | payer MEDICARE, SELFPAY | PROVIDERS: PCP Family Medicine; Visit Provider Urology | DX: C67.4 Malignant neoplasm of posterior wall of bladder (principal) | CPT/HCPCS: 81001 ==

== ENCOUNTER → 2020-04-17 11:43 | Outpatient (BNVA) | payer MEDICARE, SELFPAY | PROVIDERS: PCP Family Medicine; Visit Provider Urology | DX: C67.4 Malignant neoplasm of posterior wall of bladder (principal) | CPT/HCPCS: 81001 ==

== ENCOUNTER → 2020-05-08 11:23 | Outpatient (BNVA) | payer MEDICARE, SELFPAY | PROVIDERS: PCP Family Medicine; Visit Provider Urology | DX: C67.4 Malignant neoplasm of posterior wall of bladder (principal); F17.210 Nicotine dependence, cigarettes, uncomplicated | CPT/HCPCS: 81001 ==

== ENCOUNTER → 2020-05-15 11:17 | Outpatient (BNVA) | payer MEDICARE, SELFPAY | PROVIDERS: PCP Family Medicine; Visit Provider Urology | DX: C67.4 Malignant neoplasm of posterior wall of bladder (principal); F17.210 Nicotine dependence, cigarettes, uncomplicated | CPT/HCPCS: 81001 ==

== ENCOUNTER → 2020-06-26 10:20 | Outpatient (BNVA) | payer MEDICARE, SELFPAY | PROVIDERS: PCP Family Medicine; Visit Provider Urology | DX: C67.4 Malignant neoplasm of posterior wall of bladder (principal); Z98.52 Vasectomy status | CPT/HCPCS: 81001 ==

== ENCOUNTER → 2020-08-07 12:26 | Outpatient (BNVA) | payer MEDICARE, SELFPAY | PROVIDERS: PCP Family Medicine; Visit Provider Urology | DX: C67.4 Malignant neoplasm of posterior wall of bladder (principal) | CPT/HCPCS: 81003 ==

== ENCOUNTER → 2020-08-14 11:42 | Outpatient (BNVA) | payer MEDICARE, SELFPAY | PROVIDERS: PCP Family Medicine; Visit Provider Urology | DX: C67.4 Malignant neoplasm of posterior wall of bladder (principal) | CPT/HCPCS: 81003 ==

== ENCOUNTER → 2020-08-21 10:27 | Outpatient (BNVA) | payer MEDICARE, SELFPAY | PROVIDERS: PCP Family Medicine; Visit Provider Urology | DX: C67.4 Malignant neoplasm of posterior wall of bladder (principal) | CPT/HCPCS: 81003 ==

== ENCOUNTER → 2021-01-29 10:26 | Outpatient (BNVA) | payer MEDICARE, SELFPAY | PROVIDERS: PCP Family Medicine; Visit Provider Urology | DX: C67.4 Malignant neoplasm of posterior wall of bladder (principal); N40.1 Benign prostatic hyperplasia with lower urinary tract symptoms | CPT/HCPCS: 81003 ==

== ENCOUNTER → 2021-02-05 10:43 | Outpatient (BNVA) | payer MEDICARE, SELFPAY | PROVIDERS: PCP Family Medicine; Visit Provider Urology | DX: N40.1 Benign prostatic hyperplasia with lower urinary tract symptoms (principal); C67.4 Malignant neoplasm of posterior wall of bladder | CPT/HCPCS: 81003 ==

== ENCOUNTER → 2021-02-12 10:29 | Outpatient (BNVA) | payer MEDICARE, SELFPAY | PROVIDERS: PCP Family Medicine; Visit Provider Urology | DX: C67.4 Malignant neoplasm of posterior wall of bladder (principal) | CPT/HCPCS: 81003 ==

== ENCOUNTER → 2021-04-16 09:58 | Outpatient (BNVA) | payer MEDICARE, SELFPAY | PROVIDERS: PCP Family Medicine; Visit Provider Urology | DX: N40.1 Benign prostatic hyperplasia with lower urinary tract symptoms (principal); C67.4 Malignant neoplasm of posterior wall of bladder | CPT/HCPCS: 81003 ==